=== PATIENT | male | born 1960 | race Caucasian/White ===

== ENCOUNTER 2017-12-27 07:53 | Day surgery (SDC) | END 2017-12-27 14:52 | disposition home or self-care (01) ==

== ENCOUNTER 2018-04-04 16:17 | Inpatient (IN) | payer MEDICAID ==
[~2018-04-04] VITALS: Ht 172.7 cm; Wt 84.5 kg
[~2018-04-04 16:17] MED LIST: METF500T3 PO
[2018-04-04] MEDS ORDERED: SOD CHLORIDE 0.9% 1,000 ML IV STA (16:30)
[2018-04-04] MEDS ORDERED: ACETAMINOPHEN 325 MG TAB PO PRN (17:30)
[2018-04-04] MEDS ORDERED: ASPIRIN 325 MG TAB PO ONE (17:30)
[2018-04-04] MEDS ORDERED: ONDANSETRON 4 MG INJ IV PRN (17:30)
[2018-04-04 18:08] VITALS: PULSE 123
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
[2018-04-04] MEDS ORDERED: GLUCOSE GEL 15 GRAM TUBE BUCCAL PRN (19:00)
[2018-04-04] MEDS ORDERED: DEXTROSE 50% 50 ML SYRINGE IV PRN ×2 (19:00)
[2018-04-04] MEDS ORDERED: GLUCOSE GEL 15 GRAM TUBE PO PRN ×2 (19:00)
[2018-04-04] MEDS ORDERED: NACL 0.9% 3 ML SYG IV SCH (19:00)
[2018-04-04] MEDS ORDERED: IBUPROFEN 600 MG TAB PO PRN (19:00)
[2018-04-04] MEDS ORDERED: GLUCAGON 1 MG INJ IM PRN (19:00)
[2018-04-04] MEDS: INSULIN ASPART [NOVOLOG] 3 ML PEN SC SCH ×2 (19:47→20:03)
[2018-04-04 20:00] VITALS: PULSE 122
[2018-04-04 20:02] VITALS: BP 154/89; PULSE 115; RESP 18
[2018-04-04] MEDS: INSULIN GLARGINE [LANTus] (100 UNITS/ML) SYG SC SCH (20:59)
[2018-04-04 21:20] VITALS: Ht 172.7 cm; Wt 84.5 kg
[2018-04-04] MEDS ORDERED: SOD CHLORIDE 0.9% 500 ML IV ONE (21:30)
[2018-04-04 23:38] VITALS: BP 118/71; PULSE 104; RESP 18
[2018-04-05] VITALS (10 sets, daily range): BP systolic 113–137; BP diastolic 77–85; PULSE 76–104; RESP 18–19
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
[2018-04-05] MEDS: INSULIN ASPART [NOVOLOG] 3 ML PEN SC SCH ×4 (08:00→21:00)
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
--- NOTE | 2018-04-05 18:13 | NUR ---
EOSS;PT AWAKE,ALERT,ORIENTED X4;NO NEURO DEFICITS;HEMODYNAMICS STABLE;MONITOR NSR;SELF CARE;CON'T POC
[2018-04-05] MEDS: INSULIN GLARGINE [LANTus] (100 UNITS/ML) SYG SC SCH (21:11)
[2018-04-06] VITALS (7 sets, daily range): BP systolic 103–121; BP diastolic 69–79; PULSE 71–92; RESP 18
--- NOTE | 2018-04-06 06:26 | NUR ---
PT REMAIN IN STABLE CONDITION OVERNIGHT. NO SIGN OF ACUTE DISTRESS NOTED. VITAL SIGNS WITHIN NORMAL LIMITS. FAMILY AT BED SIDE. WILL ENDORSE TO DAY SHIFT FOR CONTINUITY OF CARE.
[2018-04-06] MEDS ORDERED: ASPIRIN (EC) 325 MG TAB PO ONE (07:30)
--- NOTE | 2018-04-06 07:36 | EEG ---
EEG NOTE Report Details DATE OF TEST: 04/05/18 HISTORY: The patient is a 58-year-old M who presents with altered mental status. This EEG is requested to evaluate for an epileptic disorder. SEDATION: None. CONDITIONS OF RECORDING: This EEG was recorded digitally on the [employer] machine, using the International 10-20 System of electrodes plus anterior temporals and [place]. STATES SAMPLED: Wakefulness through stage II sleep. FINDINGS: During wakefulness, there is a 9 Hz posterior dominant rhythm, which attenuates normally with eye opening. There is a normal [id number]-pa-[id number] frequency-amplitude gradient. The remainder of the awake background is normal. Photic stimulation does not elicit any definite driving responses or epileptiform discharges. Hyperventilation, performed with good effort, produces a negligible change in the background. The patient passed into sleep, reaching stage II, characterized by normal and symmetrical vertex waves and spindles. No asymmetries, focal abnormalities or epileptiform discharges were seen. Incidentally, the single-channel gambling monitor did not reveal any obvious cardiac arrhythmia. IMPRESSION: Normal electroencephalogram during wakefulness and sleep. COMMENT: A normal EEG does not of itself rule out an epileptic disorder, but may decrease the probability of one depending on clinical context. SAVANNA KHAN Apr 06, 2018 07:36
[2018-04-06] MEDS: INSULIN ASPART [NOVOLOG] 3 ML PEN SC SCH ×2 (08:00→12:00)
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
[2018-04-06] MEDS ORDERED: ATORVASTATIN 80 MG TAB PO SCH (21:00)
[2018-04-07] MEDS ORDERED: ASPIRIN (EC) 81 MG TAB PO SCH (09:00)
--- NOTE | 2018-04-10 19:47 | RADRPT ---
Echocardiogram Report Patient Name: ROSARIO GREEN Gender: Male Date: 1960 Study Date: 06-Apr-2018 [employer] Technician: Sherita García [facility] Location: 1A Ref. Physician: SAVANNA KHAN Quality: Good Procedures: Transthoracic echocardiogram with complete 2D, M-Mode, and doppler examination. Indications: Stroke w/ up. 2D/M Mode Doppler Measurement Value Normal Ranges Measurement Value Normal Ranges LVIDd 2D 2.9 3.5 - 5.6 cm AV Peak Anthony 0.9 m/sec LVIDs 2D 1.9 2.1 - 4.1 cm AV Peak PG 4.0 mmHg FS 2D 34.1 % LVOT Peak Anthony 0.9 m/sec LVPWd 2D 1.1 0.6 - 1.1 cm LVOT Peak PG 3.0 mmHg IVSd 2D 1.0 0.6 - 1.1 cm MV E Peak Anthony 0.6 m/sec IVS/LVPW 2D 0.9 MV A Peak Anthony 0.8 m/sec AoR Diam 2D 2.9 2.0 - 3.7 cm MV E/A 0.7 LA/Ao 2D 1 0 - 1 MV Decel Time 127 msec EDV 2D 25.2 cm3 MV E/A 0.7 ESV 2D 7.2 cm3 LA Dimen 2D 2.9 2.3 - 4.0 cm Findings Left Ventricle: Normal left ventricular systolic function. Left ventricular wall thickness upper limits of normal. Mild concentric left ventricular hypertrophy. Ejection fraction is visually estimated at 55 %. Tissue Doppler/Mitral Doppler indices are consistent with impaired relaxation (Stage I diastolic dysfunction). Right Ventricle: Normal right ventricular size. Normal right ventricular systolic function. Left Atrium: The left atrium is normal in size. Right Atrium: The right atrium is normal in size. Mitral Valve: Normal appearance of the mitral valve. No mitral valve regurgitation is seen. Aortic Valve: Normal appearance of the aortic valve. No aortic regurgitation. Tricuspid Valve: Normal appearance of the tricuspid valve. No evidence of tricuspid regurgitation. Pericardium: Normal pericardium with no significant pericardial effusion. Aorta: Normal aortic root. IVC: The IVC is not well visualized. Conclusions 1.The left ventricle is normal in size and systolic function. 2.Estimated left ventricular ejection fraction of 55%. 3.Grade 1 diastolic dysfunction. Electronically Signed By: Tian Forde 10-Apr-2018 19:46:51 -0800 Patient Name: ROSARIO GREEN Study Date: 06-Apr-[id number]
== END 2018-04-06 14:40 | disposition home or self-care (01) | DRG 72 ==
LOC: E/R 16:17 → 6WM 17:27
PROVIDERS: ADMIT Internal Medicine; ATTEND Internal Medicine
DX: G45.4 Transient global amnesia (principal); E11.9 Type 2 diabetes mellitus without complications
CPT/HCPCS: 36415; 70450; 71045; 72020; 80048; 80061; 80307; 81003; 82550; 82553; 82962; 83036; 83605; 84443; 84484; 85025; 85610; 85730; 87040; 87086; 93005; 93306; 93880; 95819; J1815; J7030; J7040

== ENCOUNTER 2018-07-28 13:16 | Emergency (ER) | payer MEDICAID ==
[~2018-07-28] VITALS: Ht 167.6 cm; Wt 83.5 kg
[2018-07-28 13:19] VITALS: Ht 167.6 cm; Wt 83.5 kg
[2018-07-28] MEDS ORDERED: DIAZEPAM 5 MG TAB PO ONE ×2 (16:00→18:00)
[2018-07-28] MEDS ORDERED: MECLIZINE 12.5 MG TAB PO ONE ×2 (16:00→18:00)
--- NOTE | 2018-07-28 17:56 | ERD ---
ER Documentation Chief Complaint Chief Complaint dizziness and nausea x3 days, inner ear pain HPI This is a 58-year-old male who is had 3 days of vertigo with right ear pain. He says if he opens his eyes the room starts to spin or if he tries to walk around or move his head the room starts to spin severely. He says he closes his eyes there is minimal spinning sensation. No headache. He says his right ear feels like there is a tapping sound but no pain or fever. Denies any numbness weakness speech change visual change or difficulty swallowing. Vertigo is severe ROS All systems reviewed and are negative except as per history of present illness. Medications Home Meds Active Scripts Diazepam* (Valium*) 5 Mg Tablet, 5 MG PO Q8 PRN for VERTIGO, #15 TAB Prov:GEOVANNA THOMAS DO 07/28/18 Meclizine Hcl* (Antivert*) 12.5 Mg Tab, 25 MG PO Q6H PRN for DIZZINESS, #30 TAB Prov:GEOVANNA THOMAS DO 07/28/18 Reported Medications Metformin Hcl* (Metformin Hcl* ER) 500 Mg Tab.sr.24h, 500 MG PO Q OTHER DAY, #30 TAB 12/27/17 Allergies Allergies: Coded Allergies: No Known Allergies (Verified Allergy, Unknown, 04/04/18) PMhx/Soc History of Surgery: Yes (right inguinal hernia repair) Anesthesia Reaction: Yes Hx Neurological Disorder: No Hx Respiratory Disorders: No Hx Cardiac Disorders: No Hx Psychiatric Problems: No Hx Miscellaneous Medical Probl: Yes (DM) Hx Alcohol Use: No Hx Substance Use: No Hx Tobacco Use: No Smoking Status: Never smoker FmHx Family History: No coronary disease Physical Exam Vitals Vital Signs Date Temp Pulse Resp B/P (MAP) Pulse Ox O2 O2 Flow FiO2 Time Delivery Rate 07/28/18 98 18 145/107 98 Room Air 16:30 (120) 07/28/18 98.8 98 18 185/106 97 13:19 (132) Physical Exam Const: Well-developed, well-nourished Head: Atraumatic, normocephalic Eyes: Normal Conjunctiva, PERRLA, EOMI, normal sclera, no nystagmus ENT: Normal External Ears, Nose and Mouth, moist mucus membranes. Neck: Full range of motion. No meningismus, no lymphadenopathy. Resp: Clear to auscultation bilaterally, no wheezing, rhonchi, rales Cardio: Regular rate and rhythm, no murmurs, S1 S2 present Abd: Soft, non tender x 4, non distended. Normal bowel sounds, no guarding or rebound, no pulsitile abdominal masses or bruits Skin: No petechiae or rashes, no ecchymosis , no maculopapular rash Back: No midline or flank tenderness Ext: No cyanosis, or edema, FROM x 4, normal inspection, neurovascularly intact x 4 Neur: Awake and alert, STR 5/5 x 4, sensation intact x 4, no focal findings, cerebellum intact, severe vertigo attack if moves his head Zak him flat, he has rotational nystagmus. Psych: Normal Mood and Affect Results 24 hrs Current Medications Medications Dose Sig/Juan Start Time Status Last (Trade) Ordered Route PRN Stop Time Admin Dose Reason Admin Meclizine 25 mg ONCE ONCE 07/28/18 DC 07/28/18 HCl PO 16:00 16:08 (Antivert) 07/28/18 16:01 Diazepam 5 mg ONCE ONCE 07/28/18 DC 07/28/18 (Valium) PO 16:00 16:08 07/28/18 16:01 Meclizine 25 mg ONCE ONCE 07/28/18 DC 07/28/18 HCl PO 18:00 17:57 (Antivert) 07/28/18 18:01 Diazepam 5 mg ONCE ONCE 07/28/18 DC 07/28/18 (Valium) PO 18:00 17:58 07/28/18 18:01 Procedures/MDM Ordering MD: GEOVANNA THOMAS DO Location: E/R Room/Bed: PROCEDURE: CT head CLINICAL INDICATION: Vertigo and dizziness TECHNIQUE: Contiguous 2.5 mm axial images were obtained from the vertex to the skull base. No intravenous contrast was administered. The calculated dose length product (DLP) = 634.23 mGy-cm. The CTDlvol = 39.64 mGy. One or more of the following dose reduction techniques were used: Automated exposure control, adjustment of the mA and or KV according to patient size, or use of iterative reconstruction technique. DICOM images are available. COMPARISON: None FINDINGS: There is no evidence of acute intracranial hemorrhage or acute territorial infarct. No mass or mass effect is seen on this noncontrast study. The ventricles and cisterns are normal in size and configuration. The lackey-white matter differentiation is within normal limits. The visualized paranasal sinuses are normally aerated. The bony calvarium is unremarkable IMPRESSION: Unremarkable unenhanced CT of the brain RPTAT: .Adam Fernandez MD, MD Date Time Electronically viewed and signed by .Adam Fernandez MD, on 07/28/2018 16:54 .W/ CC: GEOVANNA THOMAS DO [id number] Patient received 1 dose of meclizine 25 with Valium 5 mg p.o. On reevaluation he says he feels better and the fact that when he closes his eyes the vertigo is gone however when he opens his eyes he still has some rotational nystagmus and the vertigo is virtually the same Will repeat dose above Reevaluation at 8:00 PM the patient is much better he says he is about 90% back to normal. His rotational nystagmus is resolved. Will discharge home with Valium and Antivert and Zithromax for his ear and then will get [id number] Claritin-D Departure Diagnosis: Primary Impression: Vertigo Additional Impression: Serous otitis media Chronicity: acute Laterality: right Recurrence: not specified as recurrent Qualified Codes: H65.01 - Acute serous otitis media, right ear Condition: Stable GEOVANNA THOMAS DO Jul 28, 2018 17:56
[2018-07-28 20:00] VITALS: BP 147/98; PULSE 92; RESP 17
[2018-07-28] MEDS ORDERED: DIAZ5TAB PO (20:08)
[2018-07-28] MEDS ORDERED: MECL12.574 PO (20:08)
[2018-07-28] MEDS ORDERED: AZIT250T PO (20:20)
== END 2018-07-28 20:39 | disposition home or self-care (01) ==
LOC: E/R 13:16
DX: H65.01 Acute serous otitis media, right ear (principal); E11.9 Type 2 diabetes mellitus without complications; Z79.84 Long term (current) use of oral hypoglycemic drugs
CPT/HCPCS: 70450; Z7502; Z7610